=== PATIENT | male | born 1985 ===

== ENCOUNTER 2021-11-17 21:56 | Emergency (ER) | payer SELFPAY ==
[2021-11-17] MEDS ORDERED: ASPIRIN 325 MG TAB PO ONE (22:38)
--- NOTE | 2021-11-17 23:08 | XRay Report ---
CHEST 2 VIEWS INDICATION / CLINICAL INFORMATION: CHEST PAIN. COMPARISON: None available. FINDINGS: SUPPORT DEVICES: None. HEART / MEDIASTINUM: No significant abnormality. LUNGS / PLEURA: No significant pulmonary or pleural abnormality. No pneumothorax. BONES: No significant osseous abnormality. ADDITIONAL FINDINGS: No significant additional findings. IMPRESSION: 1. No active cardiopulmonary disease. Signer Name: Milan Parkinson II, MD Signed: 11/17/2021 11:04 PM Workstation Name: [id number]
[2021-11-18 00:13] LABS: Basophils % (Auto) 0.3 % (0.0-1.8); Eosinophils # (Auto) 0.2 K/mm3 (0.0-0.4); Eosinophils % (Auto) 2.2 % (0.0-4.3); Hematocrit 46.1 % (35.5-45.6); Lymphocytes # (Auto) 2.3 K/mm3 (1.2-5.4); Lymphocytes % (Auto) 21.2 % (13.4-35.0); Mean Corpuscular HGB Conc 35 % (32-34); Mean Corpuscular Volume 91 fl (84-94); Monocytes # (Auto) 0.7 K/mm3 (0.0-0.8); Monocytes % (Auto) 6.2 % (0.0-7.3); Platelet Count 314 K/mm3 (140-440); Red Blood Count 5.09 M/mm3 (3.65-5.03); Red Cell Distribution Width 13.6 % (13.2-15.2)
[2021-11-18 00:40] LABS: Alanine Aminotransferase 30 units/L (7-56); Albumin 4.7 g/dL (3.9-5); Blood Urea Nitrogen 14 mg/dL (9-20); Calcium 9.9 mg/dL (8.4-10.2); Hemolysis Index 15
[2021-11-18 00:43] LABS: BUN/Creatinine Ratio 20
--- NOTE | 2021-11-18 05:19 | Emergency Department Report ---
ED General Adult HPI - General Chief complaint: Chest Pain Stated complaint: CHEST PAIN Time Seen by Provider: 11/18/21 05:11 Source: patient Mode of arrival: Ambulatory Limitations: No Limitations - History of Present Illness Initial comments: Is a 35-year-old male who presents for right epigastric pain x2 days. Patient states intermittent nausea no vomiting. Patient denies history of gallstones. There has been no fever or chills. Been no fevers or chills. Patient is tolerating patient denies smoking or substance on a regular basis. C urrent symptoms are exacerbated by eating and movement. Symptoms are relieved by nothing tried. Patient rates abdominal pain at 4/10. - Related Data Previous Rx's Medication Instructions Recorded Last Taken Type Ibuprofen [Motrin 800 MG tab] 800 mg PO Q8HR PRN #30 tablet 11/18/21 Unknown Rx polyethylene glycoL 3350 [Miralax 17 gm PO BID PRN 7 Days #14 packet 11/18/21 Unknown Rx 3350] Allergies Allergy/AdvReac Type Severity Reaction Status Date / Time No Known Allergies Allergy Verified 11/17/21 22:38 ED Review of Systems ROS: Stated complaint: CHEST PAIN Other details as noted in HPI Constitutional: malaise. denies: chills, fever Eyes: denies: eye pain, eye discharge, vision change ENT: denies: ear pain, throat pain Respiratory: denies: cough, shortness of breath, wheezing Cardiovascular: denies: chest pain, palpitations Endocrine: no symptoms reported Gastrointestinal: abdominal pain, nausea, vomiting. denies: diarrhea, constipation, melena Genitourinary: denies: urgency, dysuria, frequency, hematuria, discharge Musculoskeletal: denies: back pain, joint swelling, arthralgia Skin: denies: rash, lesions Neurological: denies: headache, weakness, paresthesias Psychiatric: denies: anxiety, depression Hematological/Lymphatic: denies: easy bleeding, easy bruising ED Past Medical Hx - Medications Home Medications: Home Medications Medication Instructions Recorded Confirmed Last Taken Type Ibuprofen [Motrin 800 MG tab] 800 mg PO Q8HR PRN #30 tablet 11/18/21 Unknown Rx polyethylene glycoL 3350 [Miralax 17 gm PO BID PRN 7 Days #14 packet 11/18/21 Unknown Rx 3350] ED Physical Exam - General Limitations: No Limitations General appearance: alert, in no apparent distress - Head Head exam: Present: normocephalic - Eye Eye exam: Present: normal appearance, PERRL, EOMI Pupils: Present: normal accommodation - ENT ENT exam: Present: mucous membranes moist - Neck Neck exam: Present: normal inspection, full ROM. Absent: tenderness, meningismus, lymphadenopathy - Respiratory Respiratory exam: Present: normal lung sounds bilaterally. Absent: respiratory distress, wheezes, stridor, chest wall tenderness - Cardiovascular Cardiovascular Exam: Present: regular rate, normal rhythm, normal heart sounds. Absent: systolic murmur, diastolic murmur, rubs, gallop - GI/Abdominal GI/Abdominal exam: Present: soft, distended, tenderness, normal bowel sounds. Absent: guarding, rebound, rigid, bruit, hernia - Rectal Rectal exam: Present: deferred - Extremities Exam Extremities exam: Present: normal inspection, full ROM, normal capillary refill. Absent: tenderness, pedal edema - Back Exam Back exam: Present: normal inspection, full ROM. Absent: CVA tenderness (R), CVA tenderness (L) - Neurological Exam Neurological exam: Present: alert, oriented X3, CN II-XII intact, normal gait - Expanded Neurological Exam Expanded Patient oriented to: Present: person, place, time Speech: Present: fluid speech Motor strength exam: RUE: 5, LUE: 5, RLE: 5, LLE: 5 Best Eye Response (Melody): (4) open spontaneously Best Motor Response (Melody): (6) obeys commands Best Verbal Response (Schlater): (5) oriented Schlater Total: 15 - Psychiatric Psychiatric exam: Present: normal affect, normal mood - Skin Skin exam: Present: warm, dry, intact, normal color. Absent: rash ED Course Vital Signs 11/17/21 22:18 Temperature 98.3 F Pulse Rate 83 Respiratory 18 Rate Blood Pressure 132/75 O2 Sat by Pulse 96 Oximetry ED Medical Decision Making - Lab Data Result diagrams: 11/17/21 23:40 11/17/21 23:40 Labs 11/17/21 11/17/21 11/18/21 23:40 23:40 01:18 WBC 11.1 H RBC 5.09 H Hgb 16.0 H Hct 46.1 H MCV 91 MCH 32 MCHC 35 H RDW 13.6 Plt Count 314 Lymph % (Auto) 21.2 [place] % (Auto) 6.2 Eos % (Auto) 2.2 Baso % (Auto) 0.3 Lymph # (Auto) 2.3 [place] # (Auto) 0.7 Eos # (Auto) 0.2 Baso # (Auto) 0.0 Seg Neutrophils % 70.1 H Seg Neutrophils # 7.8 H Sodium 141 Potassium 4.1 Chloride 102.2 Carbon Dioxide 24 Anion Gap 19 BUN 14 Creatinine 0.7 L Estimated GFR > 60 BUN/Creatinine Ratio 20 Glucose 94 Calcium 9.9 Total Bilirubin 0.30 AST 24 ALT 30 Alkaline Phosphatase 96 Troponin T < 0.010 < 0.010 Total Protein 7.7 Albumin 4.7 Albumin/Globulin Ratio 1.6 11/18/21 04:26 WBC RBC Hgb Hct MCV MCH MCHC RDW Plt Count Lymph % (Auto) [place] % (Auto) Eos % (Auto) Baso % (Auto) Lymph # (Auto) [place] # (Auto) Eos # (Auto) Baso # (Auto) Seg Neutrophils % Seg Neutrophils # Sodium Potassium Chloride Carbon Dioxide Anion Gap BUN Creatinine Estimated GFR BUN/Creatinine Ratio Glucose Calcium Total Bilirubin AST ALT Alkaline Phosphatase Troponin T < 0.010 Total Protein Albumin Albumin/Globulin Ratio - EKG Data EKG shows normal: sinus rhythm, axis, intervals, QRS complexes, ST-T waves Rate: normal - EKG Data When compared to previous EKG there are: previous EKG unavailable Interpretation: normal EKG (NSR NSTEMI interpreted by ED attending) - Radiology Data Radiology results: report reviewed, image reviewed XR abdomen 1V ap INDICATION / CLINICAL INFORMATION: abd pain. COMPARISON: None available. TECHNIQUE: One view supine AP abdomen. FINDINGS: TUBES / LINES: None. BOWEL GAS PATTERN: No significant abnormality. FREE AIR / EXTRALUMINAL GAS: None seen. ADDITIONAL FINDINGS: No significant additional findings. IMPRESSION: 1. No significant abnormality. Signer Name: Yanely Parkinson II, MD Signed: 11/18/2021 5:28 AM Workstation Name: [id number] Transcribed By: ANA Dictated By: YANELY PARKINSON II, MD Electronically Authenticated By: YANELY PARKINSON II, MD Signed Date/Time: 11/18/21527 DD/ 6 TD/TT: CHEST 2 VIEWS INDICATION / CLINICAL INFORMATION: CHEST PAIN. COMPARISON: None available. FINDINGS: SUPPORT DEVICES: None. HEART / MEDIASTINUM: No significant abnormality. LUNGS / PLEURA: No significant pulmonary or pleural abnormality. No pneumothorax. BONES: No significant osseous abnormality. ADDITIONAL FINDINGS: No significant additional findings. IMPRESSION: 1. No active cardiopulmonary disease. Signer Name: Yanely Parkinson II, MD Signed: 11/17/2021 11:04 PM Workstation Name: [id number] Transcribed By: ANA Dictated By: YANELY PARKINSON II, MD Electronically Authenticated By: YANELY PARKINSON II, MD Signed Date/Time: 11/17/212303 DD/ 02 TD/TT: - Medical Decision Making Pt is a 35-year-old male who presents for right epigastric pain x2 days. Patient states intermittent nausea no vomiting. Patient denies history of gallstones. There has been no fever or chills. Been no fevers or chills. Patient is tolerating patient denies smoking or substance on a regular basis. Current symptoms are exacerbated by eating and movement. Symptoms are relieved by nothing tried. Patient rates abdominal pain at 4/10. EKG normal sinus rhythm no ST elevated PR interpreted by ED attending, heart score is 0 NINO score is 0 chest x-ray normal no infiltrates no opacities. KUB normal gas pattern. Labs noted as above. Troponin is less than 0.01x2. Exam abdomen is mildly distended. There is no fever no chills no nausea vomiting at this time. Plan continue to hydrate. DC to home, laxative of choice. Follow- up with your primary care doctor in 2 to 3 days. Return to emergency department should symptoms worsen. Critical care attestation.: If time is entered above; I have spent that time in minutes in the direct care of this critically ill patient, excluding procedure time. ED Disposition Clinical Impression: Chest pain Qualifiers: Chest pain type: unspecified Qualified Code(s): R07.9 - Chest pain, unspecified Disposition: 01 HOME / SELF CARE / HOMELESS Is pt being admited?: No Does the pt Need Aspirin: No Condition: Stable Instructions: Nonspecific Chest Pain, Adult Additional Instructions: Medications as prescribed, follow-up with your doctor in 2 to 3 days. Return to emergency should symptoms worsen. Prescriptions: polyethylene glycoL 3350 [Miralax 3350] 17 gm PO BID PRN 7 Days #14 packet PRN Reason: Constipation Ibuprofen [Motrin 800 MG tab] 800 mg PO Q8HR PRN #30 tablet PRN Reason: Pain , Severe (7-10) Referrals: MARY ARIAS MD [Staff Physician] - 3-5 Days Forms: Work/School Release Form(ED) Time of Disposition: 06:19 Print Language: AMHARIC
[2021-11-18] MEDS ORDERED: SODIUM CHLORIDE 0.9% 1000 ML 1,000 ML IV ONE (05:25)
[2021-11-18] MEDS ORDERED: ONDANSETRON 4 MG/2 ML INJ IV ONE (05:26)
--- NOTE | 2021-11-18 05:32 | XRay Report ---
XR abdomen 1V ap INDICATION / CLINICAL INFORMATION: abd pain. COMPARISON: None available. TECHNIQUE: One view supine AP abdomen. FINDINGS: TUBES / LINES: None. BOWEL GAS PATTERN: No significant abnormality. FREE AIR / EXTRALUMINAL GAS: None seen. ADDITIONAL FINDINGS: No significant additional findings. IMPRESSION: 1. No significant abnormality. Signer Name: Milan Parkinson II, MD Signed: 11/18/2021 5:28 AM Workstation Name: [id number]
[2021-11-18 07:32] VITALS: BP 127/73
--- NOTE | 2021-11-18 09:08 | Electrocardiograph Report ---
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
== END 2021-11-18 07:10 | disposition home or self-care (01) ==
LOC: ED 21:56
DX: R07.89 Other chest pain (principal); R10.13 Epigastric pain; R11.2 Nausea with vomiting, unspecified; Z79.899 Other long term (current) drug therapy
CPT/HCPCS: 36415; 71046; 74018; 80053; 84484; 85025; 93005; 96361; 96374; 99284; J2405; J7030